=== PATIENT | male | born 1985 | race Caucasian/White ===

== ENCOUNTER 2019-04-02 13:40 | Inpatient (IN) | payer BC, OTHER ==
[2019-04-02 18:14] VITALS: BMI 31.5
--- NOTE | 2019-04-02 19:20 | HP ---
CIWA Score Nausea/Vomitin Muscle Tremors: 2 Anxiety: 2 Agitation: 3 Paroxysmal Sweats: 1-Minimal Palms Moist Orientation: 0-Oriented Tacttile Disturbances: 1-Very Mild Itch/Numbness Auditory Disturbances: 0-None Visual Disturbances: 0-None Headache: 2-Mild CIWA-Ar Total Score: 13 - Admission Criteria OASAS Guidelines: Admission for Medically Managed Detox: Requires at least one of the followin. CIWA greater than 12 2. Seizures within the past 24 hours 3. Delirium tremens within the past 24 hours 4. Hallucinations within the past 24 hours 5. Acute intervention needed for co occurring medical disorder 6. Acute intervention needed for co occurring psychiatric disorder 7. Severe withdrawal that cannot be handled at a lower level of care (continued vomiting, continued diarrhea, abnormal vital signs) requiring intravenous medication and/or fluids 8. Admission ROS S - HPI Chief Complaint: i need help to stop drinking alcohol Allergies/Adverse Reactions: Allergies Allergy/AdvReac Type Severity Reaction Status Date / Time No Known Allergies Allergy Verified 04/02/19 18:08 History of Present Illness: this 34 years old male with alcohol dependence,seeking help ,detox,withdrawal symptom, never been in detox before, has been drinking heavy vodka 1 litre/day,started at age of 15,last drink today denied seizure syncope denied smoking plan to go to work,out patient program after detox Exam Limitations: No Limitations - Ebola screening Have you traveled outside of the country in the last 21 days: No (N) Have you had contact with anyone from an Ebola affected area: No Do you have a fever: No - Review of Systems Constitutional: Loss of Appetite, Malaise, Night Sweats, Changes in sleep EENT: reports: Nose Congestion Respiratory: reports: No Symptoms reported Cardiac: reports: No Symptoms Reported GI: reports: Nausea, Abdominal cramping : reports: No Symptoms Reported Musculoskeletal: reports: Back Pain, Muscle Pain Integumentary: reports: Dryness Neuro: reports: Headache, Tremors Endocrine: reports: No Symptoms Reported Hematology: reports: No Symptoms Reported Psychiatric: reports: No Sypmtoms Reported, Judgement Intact, Mood/Affect Appropiate, Orientated x3 Other Systems: Reviewed and Negative Patient History - Patient Medical History Hx Anemia: No Hx Asthma: No Hx Chronic Obstructive Pulmonary Disease (COPD): No Hx Cancer: No Hx Cardiac Disorders: No Hx Congestive Heart Failure: No Hx Hypertension: No Hx Hypercholesterolemia: No Hx Pacemaker: No HX Cerebrovascular Accident: No Hx Seizures: No Hx Dementia: No Hx Diabetes: No Hx Gastrointestinal Disorders: No Hx Liver Disease: No Hx Genitourinary Disorders: No Hx Sexually Transmitted Disorders: No Hx Renal Disease (ESRD): No Hx Thyroid Disease: No Hx Human Immunodeficiency Virus (HIV): No (last 09/20 negative) Hx Hepatitis C: No Hx Depression: No Hx Suicide Attempt: No Hx Bipolar Disorder: No Hx Schizophrenia: No Other Medical History: no sucidal,no homicidal - Patient Surgical History Past Surgical History: No - PPD History Previous Implant?: Yes Documented Results: Negative w/o proof Implanted On Prior [facility] Admission?: No PPD to be Administered?: No - Smoking Cessation Smoking history: Never smoked Have you smoked in the past 12 months: No Hx Chewing Tobacco Use: No - Substance & Tx. History Hx Alcohol Use: Yes Hx Substance Use: No Substance Use Type: Alcohol Hx Substance Use Treatment: No - Substances abused Alcohol Substance route: Oral Frequency: Daily Amount used: 1 LITER OF VODKA Age of first use: 20 Date of last use: 04/02/19 Admission Physical Exam S - Vital Signs Vital Signs: Vital Signs - 24 hr 04/02/19 18:08 Temperature 96.7 F L Pulse Rate 85 Respiratory 18 Rate Blood Pressure 127/70 - Physical General Appearance: Yes: Moderate Distress, Tremorous, Irritable, Sweating, Anxious HEENTM: Yes: Normal ENT Inspection, [place], Pharynx Normal Respiratory: Yes: Lungs Clear, Normal Breath Sounds, No Respiratory Distress Neck: Yes: Within Normal Limits, Supple, Trachea in good position Breast: Yes: Within Normal Limits Cardiology: Yes: Within Normal Limits, Regular Rhythm, Regular Rate, S1, S2 Abdominal: Yes: Within Normal Limits, Normal Bowel Sounds, Non Tender, Flat, Soft Genitourinary: Yes: Within Normal Limits Back: Yes: Muscle Spasm Musculoskeletal: Yes: full range of Motion, Back pain, Muscle Pain Extremities: Yes: Tremors Neurological: Yes: supervisor screen printing II-XII NML intact, Fully Oriented, Alert, Motor Strength 5/5 Integumentary: Yes: Dry, Other (tattoos) Lymphatic: Yes: Within Normal Limits - Diagnostic (1) Alcohol dependence with uncomplicated withdrawal Current Visit: Yes Status: Acute (2) Syncope Current Visit: Yes Status: Acute Cleared for Admission S - Detox or Rehab [facility] Level of Care: Medically Managed Detox Regimen/Protocol: Librium Breathalyzer - Breathalyzer Breathalyzer: 0 Urine Drug Screen - Test Device Lot number: [id number] Expiration date: 12/01/20 - Control Is test valid?: Yes - Results Drug screen NEGATIVE: No Urine drug screen results: THC-Marijuana, ANTOINE-Cocaine Inpatient Rehab Admission - Rehab Decision to Admit Inpatient rehab admission?: No
[2019-04-02] MEDS ORDERED: ACETAMINOPHEN 325 MG TABLET (FP) PO PRN ×2 (19:32)
[2019-04-02] MEDS ORDERED: BISMUTH SUBSALICYLATE 524 MG/30 ML UD PO PRN (19:32)
[2019-04-02] MEDS ORDERED: MENTHOL/PHENOL 1 EACH UD MM PRN (19:32)
[2019-04-02] MEDS ORDERED: MAG HYDROX/AL HYDROX/SIMETH 30 ML UNIT-DOSE CUP PO PRN (19:32)
[2019-04-02] MEDS ORDERED: MAGNESIUM HYDROX 2400MG/30ML ORAL SUSPENSION 30 ML CUP PO PRN (19:32)
[2019-04-02] MEDS ORDERED: MAGNESIUM CITRATE 300 ML BOTTLE PO PRN (19:32)
[2019-04-02] MEDS ORDERED: METHOCARBAMOL 500 MG TABLET PO PRN (19:32)
[2019-04-02] MEDS ORDERED: chlordiazePOXIDE HCL 25 MG CAPSULE PO PRN (19:32)
[2019-04-02] MEDS ORDERED: IBUPROFEN 400 MG TABLET (FP) PO PRN (19:32)
[2019-04-02] MEDS: THIAMINE HCL 100 MG TABLET (FP) PO SCH (22:29)
[2019-04-02] MEDS: chlordiazePOXIDE HCL 25 MG CAPSULE PO SCH (22:29)
[2019-04-03] MEDS: chlordiazePOXIDE HCL 25 MG CAPSULE PO SCH ×4 (05:41→22:17)
--- NOTE | 2019-04-03 09:46 | PN ---
S CIWA - CIWA Score Nausea/Vomitin-Mild Nausea/No Vomiting Muscle Tremors: 3 Anxiety: 4-Mod. Anxious/Guarded Agitation: 2 Paroxysmal Sweats: 2 Orientation: 0-Oriented Tacttile Disturbances: 0-None Auditory Disturbances: 0-None Visual Disturbances: 0-None Headache: 0-None Present CIWA-Ar Total Score: 12 S Progress Note (SOAP) Subjective: doing well with librium detox regimen sitting on the edge of the bed eating breakfast demands meat for breakfast gta referral Objective: 04/03/19 09:45 Vital Signs Temperature 98.1 F 04/03/19 09:07 Pulse Rate 64 04/03/19 09:07 Respiratory Rate 18 04/03/19 09:07 Blood Pressure 129/69 04/03/19 09:07 O2 Sat by Pulse Oximetry (%) lab pending Assessment: 04/03/19 09:46 alcohol withdrawal sx Plan: continue librium detox regimen
[2019-04-03] MEDS: PRENATAL VITAMINS W/ FOLIC ACID TABLET (FP) PO SCH (10:30)
[2019-04-03 11:41] LABS: HEMATOCRIT 40.6 % (35.4-49); HEMOGLOBIN 13.5 GM/dL (11.7-16.9); MCH 29.3 pg (25.7-33.7); MCHC 33.3 g/dl (32.0-35.9); MEAN CELL VOLUME 88.1 fl (80-96); MEAN PLT VOLUME 9.3 fl (7.5-11.1); PLATELET COUNT 249 K/MM3 (134-434); RBC 4.61 M/mm3 (4.00-5.60); RDW 15.2 % (11.9-15.9); WHITE BLOOD COUNT 4.7 K/mm3 (4.0-10.0)
[2019-04-03 12:28] LABS: BILIRUBIN,TOTAL 0.3 mg/dL (0.2-1); BLOOD UREA NITROGEN 17.7 mg/dL (7-18); CALCIUM 8.6 mg/dL (8.5-10.1); CREATININE 1.2 mg/dL (0.55-1.3); POTASSIUM 3.9 mmol/L (3.5-5.1); TOT PROT 5.9 g/dl (6.4-8.2)
--- NOTE | 2019-04-03 13:25 | EKG ---
Test Reason : Blood Pressure : / mmHG Vent. Rate : 083 BPM Atrial Rate : 083 BPM P-R Int : 172 ms QRS Dur : 100 ms QT Int : 368 ms P-R-T Axes : 073 -44 044 degrees QTc Int : 432 ms NORMAL SINUS RHYTHM LEFT AXIS DEVIATION SEPTAL INFARCT , AGE UNDETERMINED ABNORMAL ECG NO PREVIOUS ECGS AVAILABLE Confirmed by KRISTIN FELIPE MD ([id number]) on 04/03/2019 1:25:08 PM Referred By: Confirmed By:KRISTIN FELIPE MD
[2019-04-03] MEDS: THIAMINE HCL 100 MG TABLET (FP) PO SCH (22:17)
[2019-04-03] MEDS: MELATONIN 5 MG TABLETS PO PRN (22:17)
[2019-04-04] MEDS: chlordiazePOXIDE HCL 25 MG CAPSULE PO SCH ×4 (05:54→22:09)
[2019-04-04] MEDS: PRENATAL VITAMINS W/ FOLIC ACID TABLET (FP) PO SCH (10:26)
--- NOTE | 2019-04-04 13:17 | PN ---
S CIWA - CIWA Score Nausea/Vomitin-Mild Nausea/No Vomiting Muscle Tremors: 2 Anxiety: 2 Agitation: 2 Paroxysmal Sweats: No Perspiration Orientation: 0-Oriented Tacttile Disturbances: 1-Very Mild Itch/Numbness Auditory Disturbances: 0-None Visual Disturbances: 0-None Headache: 2-Mild CIWA-Ar Total Score: 10 S Progress Note (SOAP) Subjective: alert,irritable,anxious,interrupted sleep,tremor Objective: 04/04/19 13:16 Vital Signs Temperature 98.3 F 04/04/19 13:04 Pulse Rate 82 04/04/19 13:04 Respiratory Rate 18 04/04/19 13:04 Blood Pressure 121/67 04/04/19 13:04 O2 Sat by Pulse Oximetry (%) Laboratory Last Values WBC 4.7 K/mm3 (4.0-10.0) 04/03/19 08:50 RBC 4.61 M/mm3 (4.00-5.60) 04/03/19 08:50 Hgb 13.5 GM/dL (11.7-16.9) 04/03/19 08:50 Hct 40.6 % (35.4-49) 04/03/19 08:50 MCV 88.1 fl (80-96) 04/03/19 08:50 MCH 29.3 pg (25.7-33.7) 04/03/19 08:50 MCHC 33.3 g/dl (32.0-35.9) 04/03/19 08:50 RDW 15.2 % (11.9-15.9) 04/03/19 08:50 Plt Count 249 K/MM3 (134-434) 04/03/19 08:50 MPV 9.3 fl (7.5-11.1) 04/03/19 08:50 Sodium 142 mmol/L (136-145) 04/03/19 08:50 Potassium 3.9 mmol/L (3.5-5.1) 04/03/19 08:50 Chloride 104 mmol/L (98-107) 04/03/19 08:50 Carbon Dioxide 31 mmol/L (21-32) 04/03/19 08:50 Anion Gap 7 MMOL/L (8-16) L 04/03/19 08:50 BUN 17.7 mg/dL (7-18) 04/03/19 08:50 Creatinine 1.2 mg/dL (0.55-1.3) 04/03/19 08:50 Est GFR (CKD-EPI)AfAm 92.83 04/03/19 08:50 Est GFR (CKD-EPI)NonAf 80.09 04/03/19 08:50 Random Glucose 83 mg/dL (74-106) 04/03/19 08:50 Calcium 8.6 mg/dL (8.5-10.1) 04/03/19 08:50 Total Bilirubin 0.3 mg/dL (0.2-1) 04/03/19 08:50 AST 29 U/L (15-37) 04/03/19 08:50 ALT 29 U/L (13-61) 04/03/19 08:50 Alkaline Phosphatase 68 U/L (45-117) 04/03/19 08:50 Total Protein 5.9 g/dl (6.4-8.2) L 04/03/19 08:50 Albumin 3.0 g/dl (3.4-5.0) L 04/03/19 08:50 RPR Titer Nonreactive (NONREACTIVE) 04/03/19 08:50 Assessment: 04/04/19 13:16 withdrawal symptom Plan: continue detox librium regimen
[2019-04-04] MEDS: THIAMINE HCL 100 MG TABLET (FP) PO SCH (22:09)
[2019-04-04] MEDS: MELATONIN 5 MG TABLETS PO PRN (22:10)
[2019-04-05] MEDS ORDERED: chlordiazePOXIDE HCL 10 MG CAPSULE PO PRN
[2019-04-05] MEDS: chlordiazePOXIDE HCL 10 MG CAPSULE PO SCH ×4 (05:43→22:10)
[2019-04-05] MEDS: PRENATAL VITAMINS W/ FOLIC ACID TABLET (FP) PO SCH (10:15)
--- NOTE | 2019-04-05 13:45 | PN ---
S CIWA - CIWA Score Nausea/Vomitin-Mild Nausea/No Vomiting Muscle Tremors: 2 Anxiety: 2 Agitation: 2 Paroxysmal Sweats: 1-Minimal Palms Moist Orientation: 0-Oriented Tacttile Disturbances: 0-None Auditory Disturbances: 0-None Visual Disturbances: 0-None Headache: 2-Mild CIWA-Ar Total Score: 10 S Progress Note (SOAP) Subjective: alert,irritable,anxious,interrupted sleep,pain in the body Objective: 04/05/19 13:43 Vital Signs Temperature 97.5 F L 04/05/19 13:01 Pulse Rate 74 04/05/19 13:01 Respiratory Rate 18 04/05/19 13:01 Blood Pressure 138/76 04/05/19 13:01 O2 Sat by Pulse Oximetry (%) 04/05/19 13:44 Laboratory Last Values WBC 4.7 K/mm3 (4.0-10.0) 04/03/19 08:50 RBC 4.61 M/mm3 (4.00-5.60) 04/03/19 08:50 Hgb 13.5 GM/dL (11.7-16.9) 04/03/19 08:50 Hct 40.6 % (35.4-49) 04/03/19 08:50 MCV 88.1 fl (80-96) 04/03/19 08:50 MCH 29.3 pg (25.7-33.7) 04/03/19 08:50 MCHC 33.3 g/dl (32.0-35.9) 04/03/19 08:50 RDW 15.2 % (11.9-15.9) 04/03/19 08:50 Plt Count 249 K/MM3 (134-434) 04/03/19 08:50 MPV 9.3 fl (7.5-11.1) 04/03/19 08:50 Sodium 142 mmol/L (136-145) 04/03/19 08:50 Potassium 3.9 mmol/L (3.5-5.1) 04/03/19 08:50 Chloride 104 mmol/L (98-107) 04/03/19 08:50 Carbon Dioxide 31 mmol/L (21-32) 04/03/19 08:50 Anion Gap 7 MMOL/L (8-16) L 04/03/19 08:50 BUN 17.7 mg/dL (7-18) 04/03/19 08:50 Creatinine 1.2 mg/dL (0.55-1.3) 04/03/19 08:50 Est GFR (CKD-EPI)AfAm 92.83 04/03/19 08:50 Est GFR (CKD-EPI)NonAf 80.09 04/03/19 08:50 Random Glucose 83 mg/dL (74-106) 04/03/19 08:50 Calcium 8.6 mg/dL (8.5-10.1) 04/03/19 08:50 Total Bilirubin 0.3 mg/dL (0.2-1) 04/03/19 08:50 AST 29 U/L (15-37) 04/03/19 08:50 ALT 29 U/L (13-61) 04/03/19 08:50 Alkaline Phosphatase 68 U/L (45-117) 04/03/19 08:50 Total Protein 5.9 g/dl (6.4-8.2) L 04/03/19 08:50 Albumin 3.0 g/dl (3.4-5.0) L 04/03/19 08:50 RPR Titer Nonreactive (NONREACTIVE) 04/03/19 08:50 TB (QFT) Incubation (.) 04/03/19 08:45 TB Test (QFT) Nil 0.04 IU/mL (.) 04/03/19 08:45 TB Test (QFT) Mitogen >10.00 IU/mL (.) 04/03/19 08:45 TB Test (QFT) Antigen 0.05 IU/mL (.) 04/03/19 08:45 TB Test (QFT) Negative (Negative) 04/03/19 08:45 TB Positive Criteria (.) 04/03/19 08:45 Assessment: 04/05/19 13:44 withdrawal symptom Plan: continue detox librium regimen
[2019-04-05 17:14] LABS: PH,URINE 7.5 (5.0-8.0); URINE APPEARANCE CLEAR; URINE BILIRUBIN NEGATIVE (NEGATIVE); URINE COLOR YELLOW; URINE GLUCOSE (UA) NEGATIVE (NEGATIVE); URINE KETONE NEGATIVE (NEGATIVE); URINE LEUK ESTERASE NEGATIVE (NEGATIVE); URINE NITRITE NEGATIVE (NEGATIVE); URINE PROTEIN NEGATIVE (NEGATIVE); URINE UROBILINOGEN 0.2 mg/dL (0.2-1.0)
[2019-04-05] MEDS: hydrOXYzine PAMOATE 25 MG CAPSULE (FP) PO PRN (17:21)
[2019-04-05] MEDS: THIAMINE HCL 100 MG TABLET (FP) PO SCH (22:10)
[2019-04-05] MEDS: MELATONIN 5 MG TABLETS PO PRN (22:10)
[2019-04-06] MEDS: chlordiazePOXIDE HCL 10 MG CAPSULE PO SCH ×2 (05:21→18:52)
[2019-04-06] MEDS: PRENATAL VITAMINS W/ FOLIC ACID TABLET (FP) PO SCH (10:11)
--- NOTE | 2019-04-06 15:14 | PN ---
S CIWA - CIWA Score Nausea/Vomitin-No Nausea/No Vomiting Muscle Tremors: None Anxiety: 0-No Anxiety, at Ease Agitation: 2 Paroxysmal Sweats: No Perspiration Orientation: 0-Oriented Tacttile Disturbances: 0-None Auditory Disturbances: 0-None Visual Disturbances: 0-None Headache: 0-None Present CIWA-Ar Total Score: 2 [facility] Progress Note (SOAP) Subjective: Patient denies current Withdrawal / Detox symptoms and reports that he feels well overall at this time. Objective: PATIENT A & O X 3, OBSERVED AMBULATING ON DETOX UNIT UNASSISTED. IN NO ACUTE DISTRESS. 04/06/19 15:13 Vital Signs Temperature 97.3 F L 04/06/19 13:09 Pulse Rate 66 04/06/19 13:09 Respiratory Rate 18 04/06/19 13:09 Blood Pressure 119/71 04/06/19 13:09 O2 Sat by Pulse Oximetry (%) Laboratory Tests 04/03/19 04/03/19 04/03/19 08:45 08:50 08:50 WBC 4.7 RBC 4.61 Hgb 13.5 Hct 40.6 MCV 88.1 MCH 29.3 MCHC 33.3 RDW 15.2 Plt Count 249 MPV 9.3 Sodium 142 Potassium 3.9 Chloride 104 Carbon Dioxide 31 Anion Gap 7 L BUN 17.7 Creatinine 1.2 Est GFR (CKD-EPI)AfAm 92.83 Est GFR (CKD-EPI)NonAf 80.09 Random Glucose 83 Calcium 8.6 Total Bilirubin 0.3 AST 29 ALT 29 Alkaline Phosphatase 68 Total Protein 5.9 L Albumin 3.0 L Urine Color Urine Appearance Urine pH Ur Specific [place] Urine Protein Urine Glucose (UA) Urine Ketones Urine Blood Urine Nitrite Urine Bilirubin Urine Urobilinogen Ur Leukocyte Esterase RPR Titer TB (QFT) Incubation TB Test (QFT) Nil 0.04 TB Test (QFT) Mitogen >10.00 TB Test (QFT) Antigen 0.05 TB Test (QFT) Negative TB Positive Criteria 04/03/19 04/05/19 08:50 15:45 WBC RBC Hgb Hct MCV MCH MCHC RDW Plt Count MPV Sodium Potassium Chloride Carbon Dioxide Anion Gap BUN Creatinine Est GFR (CKD-EPI)AfAm Est GFR (CKD-EPI)NonAf Random Glucose Calcium Total Bilirubin AST ALT Alkaline Phosphatase Total Protein Albumin Urine Color Yellow Urine Appearance Clear Urine pH 7.5 Ur Specific [place] 1.012 Urine Protein Negative Urine Glucose (UA) Negative Urine Ketones Negative Urine Blood Negative Urine Nitrite Negative Urine Bilirubin Negative Urine Urobilinogen 0.2 Ur Leukocyte Esterase Negative RPR Titer Nonreactive TB (QFT) Incubation TB Test (QFT) Nil TB Test (QFT) Mitogen TB Test (QFT) Antigen TB Test (QFT) TB Positive Criteria LABS NOTED. Assessment: 04/06/19 15:14 WITHDRAWAL SYMPTOMS. Plan: CONTINUE DETOX. PATIENT SCHEDULED FOR D/C FROM DETOX UNIT TOMORROW.
[2019-04-06] MEDS: MELATONIN 5 MG TABLETS PO PRN (22:21)
[2019-04-06] MEDS: THIAMINE HCL 100 MG TABLET (FP) PO SCH (22:21)
[2019-04-06] MEDS: hydrOXYzine PAMOATE 25 MG CAPSULE (FP) PO PRN (22:22)
[2019-04-07] MEDS ORDERED: chlordiazePOXIDE HCL 10 MG CAPSULE PO ONE (05:00)
[2019-04-07 06:28] VITALS: BP 112/76; PULSE 68; TEMP 97.1
--- NOTE | 2019-04-07 16:46 | DS ---
[facility] Detox Discharge Summary Admission Date: 04/02/19 Discharge Date: 04/07/19 - History Present History: Alcohol Dependence Additional Comments: PATIENT RETURNING HOME AND TO WORK, WILL ATTEND LOCAL 12-STEP / AA OUTPATIENT SUPPORT GROUPS PROGRAM FOR AFTERCARE. PATIENT WAS DISCHARGED FROM DETOX UNIT IN STABLE MEDICAL CONDITION. Pertinent Past History: History Of Syncope. - Physical Exam Results Vital Signs: Vital Signs Temperature 97.1 F L 04/07/19 06:00 Pulse Rate 68 04/07/19 06:00 Respiratory Rate 20 04/07/19 06:00 Blood Pressure 112/76 04/07/19 06:00 O2 Sat by Pulse Oximetry (%) Pertinent Admission Physical Exam Findings: WITHDRAWAL SYMPTOMS. Laboratory Tests 04/03/19 04/03/19 04/03/19 08:45 08:50 08:50 WBC 4.7 RBC 4.61 Hgb 13.5 Hct 40.6 MCV 88.1 MCH 29.3 MCHC 33.3 RDW 15.2 Plt Count 249 MPV 9.3 Sodium 142 Potassium 3.9 Chloride 104 Carbon Dioxide 31 Anion Gap 7 L BUN 17.7 Creatinine 1.2 Est GFR (CKD-EPI)AfAm 92.83 Est GFR (CKD-EPI)NonAf 80.09 Random Glucose 83 Calcium 8.6 Total Bilirubin 0.3 AST 29 ALT 29 Alkaline Phosphatase 68 Total Protein 5.9 L Albumin 3.0 L Urine Color Urine Appearance Urine pH Ur Specific [place] Urine Protein Urine Glucose (UA) Urine Ketones Urine Blood Urine Nitrite Urine Bilirubin Urine Urobilinogen Ur Leukocyte Esterase RPR Titer TB (QFT) Incubation TB Test (QFT) Nil 0.04 TB Test (QFT) Mitogen >10.00 TB Test (QFT) Antigen 0.05 TB Test (QFT) Negative TB Positive Criteria 04/03/19 04/05/19 08:50 15:45 WBC RBC Hgb Hct MCV MCH MCHC RDW Plt Count MPV Sodium Potassium Chloride Carbon Dioxide Anion Gap BUN Creatinine Est GFR (CKD-EPI)AfAm Est GFR (CKD-EPI)NonAf Random Glucose Calcium Total Bilirubin AST ALT Alkaline Phosphatase Total Protein Albumin Urine Color Yellow Urine Appearance Clear Urine pH 7.5 Ur Specific [place] 1.012 Urine Protein Negative Urine Glucose (UA) Negative Urine Ketones Negative Urine Blood Negative Urine Nitrite Negative Urine Bilirubin Negative Urine Urobilinogen 0.2 Ur Leukocyte Esterase Negative RPR Titer Nonreactive TB (QFT) Incubation TB Test (QFT) Nil TB Test (QFT) Mitogen TB Test (QFT) Antigen TB Test (QFT) TB Positive Criteria LABS NOTED. - Treatment Hospital Course: Detox Protocol Followed, Detoxed Safely, Responded well, Discharged Condition Good Patient has Accepted a Rehab Referral to: PT. RETURNING HOME, WILL ATTEND LOCAL 12-STEP / AA OUTPATIENT SUPPORT GROUP - Medication Discharge Medications: Ambulatory Orders NK [No Known Home Medication] 01/24/16 - Diagnosis (1) Alcohol dependence with uncomplicated withdrawal Status: Acute (2) Syncope Status: Acute Qualifiers: Syncope type: unspecified Qualified Code(s): R55 - Syncope and collapse - AMA Did Patient Leave Against Medical Advice: No [facility] CIWA - CIWA Score Nausea/Vomitin-No Nausea/No Vomiting Muscle Tremors: None Anxiety: 0-No Anxiety, at Ease Agitation: 2 Paroxysmal Sweats: No Perspiration Orientation: 0-Oriented Tacttile Disturbances: 0-None Auditory Disturbances: 0-None Visual Disturbances: 0-None Headache: 0-None Present CIWA-Ar Total Score: 2
== END 2019-04-07 08:43 | disposition home or self-care (01) | DRG 897 ==
LOC: YASAS 13:40 → Y3N 19:34
PROVIDERS: ADMIT Surgery; ATTEND Surgery
PROC: HZ2ZZZZ Detoxification Services for Substance Abuse Treatment (ICD-10-PCS; principal; 2019-04-02)
DX: F10.230 Alcohol dependence with withdrawal, uncomplicated (principal); R55 Syncope and collapse
CPT/HCPCS: 36415; 80053; 81003; 85027; 86480; 86593; 93005; 93010

== ENCOUNTER 2020-01-18 19:13 | Inpatient (IN) | payer BC, OTHER ==
[2020-01-18 19:20] VITALS: BMI 29.5
--- NOTE | 2020-01-18 19:31 | HP ---
CIWA Score - Admission Criteria OASAS Guidelines: Admission for Medically Managed Detox: Requires at least one of the followin. CIWA greater than 12 2. Seizures within the past 24 hours 3. Delirium tremens within the past 24 hours 4. Hallucinations within the past 24 hours 5. Acute intervention needed for co occurring medical disorder 6. Acute intervention needed for co occurring psychiatric disorder 7. Severe withdrawal that cannot be handled at a lower level of care (continued vomiting, continued diarrhea, abnormal vital signs) requiring intravenous medication and/or fluids 8. Admission ROS S - [facility] Chief Complaint: Seeking admission to detox from alcohol. Allergies/Adverse Reactions: Allergies Allergy/AdvReac Type Severity Reaction Status Date / Time No Known Allergies Allergy Verified 01/18/20 19:23 History of Present Illness: 34 years old male with a long history of alcohol dependence (16 years ) is seeking admission to detox. This is his second admission to [facility], last admission was for the period 04/02/2019 - 04/07/2019. He reports use of 2 pints of vodka daily and insignificant period of sobriety. He denies medical history, psych. history and suicidal attempt / ideation at this time. 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 He is employed with [employer], lives with his father and denies legal issues. Exam Limitations: No Limitations - Ebola screening Have you traveled outside of the country in the last 21 days: No Have you had contact with anyone from an Ebola affected area: No Have you been sick,other than usual withdrawal symptoms: No Do you have a fever: No - Review of Systems Constitutional: Chills, Malaise EENT: reports: No Symptoms Reported Respiratory: reports: No Symptoms reported Cardiac: reports: No Symptoms Reported GI: reports: Constipated, Nausea, Poor Fluid Intake, Abdominal cramping : reports: No Symptoms Reported Musculoskeletal: reports: No Symptoms Reported Integumentary: reports: Dryness, Flushing Neuro: reports: Tremors Endocrine: reports: No Symptoms Reported, Unexplained Weight Loss Psychiatric: reports: Mood/Affect Appropiate, Orientated x3, Depressed Other Systems: Reviewed and Negative Patient History - Patient Medical History Hx Anemia: No Hx Asthma: No Hx Chronic Obstructive Pulmonary Disease (COPD): No Hx Cancer: No Hx Cardiac Disorders: No Hx Congestive Heart Failure: No Hx Hypertension: No Hx Hypercholesterolemia: No Hx Pacemaker: No HX Cerebrovascular Accident: No Hx Seizures: No Hx Dementia: No Hx Diabetes: No Hx Gastrointestinal Disorders: No Hx Liver Disease: No Hx Genitourinary Disorders: No Hx Sexually Transmitted Disorders: No Hx Renal Disease (ESRD): No Hx Thyroid Disease: No Hx Human Immunodeficiency Virus (HIV): No (Negative 09/2018) Hx Hepatitis C: No Hx Depression: No Hx Suicide Attempt: No (Denies suicidal ideation at this time) Hx Bipolar Disorder: No Hx Schizophrenia: No - Patient Surgical History Past Surgical History: No Hx Neurologic Surgery: No Hx Cataract Extraction: No Hx Cardiac Surgery: No Hx Lung Surgery: No Hx Breast Surgery: No Hx Breast Biopsy: No Hx Abdominal Surgery: No Hx Appendectomy: No Hx Cholecystectomy: No Hx Genitourinary Surgery: No Hx Section: No Hx Orthopedic Surgery: No Anesthesia Reaction: No - PPD History Previous Implant?: No Implanted On Prior [facility] Admission?: No PPD to be Administered?: Yes - Reproductive History Patient is a Female of Child Bearing Age (11 -55 yrs old): No (male) - Smoking Cessation Smoking history: Current every day smoker Have you smoked in the past 12 months: Yes Aproximately how many cigarettes per day: 10 Hx Chewing Tobacco Use: No Initiated information on smoking cessation: Yes 'Breaking Loose' booklet given: 01/18/20 - Substance & Tx. History Hx Alcohol Use: Yes Hx Substance Use: Yes Substance Use Type: Cocaine, Marijuana Hx Substance Use Treatment: Yes ([facility]) - Substances abused Alcohol Frequency: 3-6 times per week Amount used: 2 pints Vodka Age of first use: 18 Date of last use: 01/18/20 Admission Physical Exam [facility] - Vital Signs Vital Signs: Vital Signs - 24 hr 01/18/20 19:19 Temperature 97.8 F Pulse Rate 81 Respiratory 18 Rate Blood Pressure 126/74 - Physical General Appearance: Yes: Moderate Distress, Alcohol on Breath, Sweating HEENTM: Yes: Within Normal Limits Respiratory: Yes: Lungs Clear, Normal Breath Sounds, No Respiratory Distress Neck: Yes: Within Normal Limits Breast: Yes: Breast Exam Deferred Cardiology: Yes: Regular Rhythm, Regular Rate Abdominal: Yes: Normal Bowel Sounds, Soft Genitourinary: Yes: Within Normal Limits Back: Yes: Normal Inspection Musculoskeletal: Yes: Within Normal Limits Extremities: Yes: Tremors Neurological: Yes: Within Normal Limits Integumentary: Yes: Warm Lymphatic: Yes: Within Normal Limits - Diagnostic (1) Nicotine dependence Current Visit: Yes Status: Chronic Qualifiers: Nicotine product type: cigarettes Substance use status: uncomplicated Qualified Code(s): F17.210 - Nicotine dependence, cigarettes, uncomplicated (2) Cocaine dependence Current Visit: Yes Status: Chronic (3) Marijuana dependence Current Visit: Yes Status: Chronic (4) Alcohol dependence with uncomplicated withdrawal Current Visit: Yes Status: Acute Cleared for Admission [facility] - Detox or Rehab [facility] Level of Care: Medically Managed Detox Regimen/Protocol: Librium Claeared for Rehab Admission: No Breathalyzer - Breathalyzer Breathalyzer: 0.137 Urine Drug Screen - Test Device Lot number: [id number] Expiration date: 03/04/21 - Control Is test valid?: Yes - Results Drug screen NEGATIVE: No Urine drug screen results: THC-Marijuana, ANTOINE-Cocaine Inpatient Rehab Admission - Rehab Decision to Admit Inpatient rehab admission?: No
[2020-01-18] MEDS ORDERED: chlordiazePOXIDE HCL 25 MG CAPSULE PO PRN (19:41)
[2020-01-18] MEDS ORDERED: NICOTINE POLACRILEX 2 MG GUM BUC PRN (19:41)
[2020-01-18] MEDS ORDERED: hydrOXYzine PAMOATE 25 MG CAPSULE (FP) PO PRN (19:41)
[2020-01-18] MEDS ORDERED: IBUPROFEN 400 MG TABLET (FP) PO PRN (19:41)
[2020-01-18] MEDS ORDERED: ACETAMINOPHEN 325 MG TABLET (FP) PO PRN ×2 (19:41)
[2020-01-18] MEDS ORDERED: MAG HYDROX/AL HYDROX/SIMETH 30 ML UNIT-DOSE CUP PO PRN (19:41)
[2020-01-18] MEDS ORDERED: BISMUTH SUBSALICYLATE 524 MG/30 ML UD PO PRN (19:41)
[2020-01-18] MEDS ORDERED: MAGNESIUM HYDROX 2400MG/30ML ORAL SUSPENSION 30 ML CUP PO PRN (19:41)
[2020-01-18] MEDS ORDERED: MAGNESIUM CITRATE 300 ML BOTTLE PO PRN (19:41)
[2020-01-18] MEDS ORDERED: METHOCARBAMOL 500 MG TABLET PO PRN (19:41)
[2020-01-18] MEDS ORDERED: ONDANSETRON *ODT* 4 MG TABLET SL ONE (20:00)
[2020-01-18] MEDS: THIAMINE HCL 100 MG TABLET (FP) PO SCH (22:08)
[2020-01-18] MEDS: chlordiazePOXIDE HCL 25 MG CAPSULE PO SCH (22:08)
[2020-01-18] MEDS: MELATONIN 5 MG TABLETS PO SCH (22:22)
[2020-01-19] MEDS: chlordiazePOXIDE HCL 25 MG CAPSULE PO SCH ×4 (06:01→22:14)
[2020-01-19 09:43] LABS: HEMATOCRIT 44.3 % (35.4-49); MCH 31.2 pg (25.7-33.7); MCHC 33.8 g/dl (32.0-35.9); PLATELET COUNT 298 K/MM3 (134-434); RBC 4.81 M/mm3 (4.00-5.60); RDW 13.4 % (11.9-15.9); WHITE BLOOD COUNT 5.2 K/mm3 (4.0-10.0)
[2020-01-19 10:03] LABS: POTASSIUM 3.6 mmol/L (3.5-5.1)
[2020-01-19 10:13] LABS: ALBUMIN 4.1 g/dl (3.4-5.0); BILIRUBIN,TOTAL 0.4 mg/dL (0.2-1); BLOOD UREA NITROGEN 10.2 mg/dL (7-18); CREATININE 0.9 mg/dL (0.55-1.3); TOT PROT 6.2 g/dl (6.4-8.2)
[2020-01-19] MEDS: PRENATAL VITAMINS W/ FOLIC ACID TABLET (FP) PO SCH (10:35)
[2020-01-19] MEDS: NICOTINE 14 MG/24 HOURS TOPICAL PATCH TD SCH (10:36)
--- NOTE | 2020-01-19 14:06 | PN ---
S CIWA - CIWA Score Nausea/Vomitin Muscle Tremors: 3 Anxiety: 2 Agitation: 2 Paroxysmal Sweats: No Perspiration Orientation: 0-Oriented Tacttile Disturbances: 1-Very Mild Itch/Numbness Auditory Disturbances: 0-None Visual Disturbances: 0-None Headache: 1-Very Mild CIWA-Ar Total Score: 11 S Progress Note (SOAP) Subjective: alert,irritable,anxious,interrupted sleep,tremor,nausea,pain in the body Objective: 01/19/20 14:04 Vital Signs Temperature 97.3 F L 01/19/20 08:52 Pulse Rate 79 01/19/20 08:52 Respiratory Rate 18 01/19/20 08:52 Blood Pressure 131/76 01/19/20 08:52 O2 Sat by Pulse Oximetry (%) 97 01/19/20 05:52 Laboratory Last Values WBC 5.2 K/mm3 (4.0-10.0) 01/19/20 07:20 RBC 4.81 M/mm3 (4.00-5.60) 01/19/20 07:20 Hgb 15.0 GM/dL (11.7-16.9) 01/19/20 07:20 Hct 44.3 % (35.4-49) 01/19/20 07:20 MCV 92.0 fl (80-96) 01/19/20 07:20 MCH 31.2 pg (25.7-33.7) 01/19/20 07:20 MCHC 33.8 g/dl (32.0-35.9) 01/19/20 07:20 RDW 13.4 % (11.9-15.9) D 01/19/20 07:20 Plt Count 298 K/MM3 (134-434) 01/19/20 07:20 MPV 10.0 fl (7.5-11.1) 01/19/20 07:20 Sodium 139 mmol/L (136-145) 01/19/20 07:20 Potassium 3.6 mmol/L (3.5-5.1) 01/19/20 07:20 Chloride 104 mmol/L (98-107) 01/19/20 07:20 Carbon Dioxide 33 mmol/L (21-32) H 01/19/20 07:20 Anion Gap 3 MMOL/L (8-16) L 01/19/20 07:20 BUN 10.2 mg/dL (7-18) 01/19/20 07:20 Creatinine 0.9 mg/dL (0.55-1.3) 01/19/20 07:20 Est GFR (CKD-EPI)AfAm 130.52 01/19/20 07:20 Est GFR (CKD-EPI)NonAf 112.62 01/19/20 07:20 Random Glucose 101 mg/dL (74-106) 01/19/20 07:20 Calcium 9.0 mg/dL (8.5-10.1) 01/19/20 07:20 Total Bilirubin 0.4 mg/dL (0.2-1) 01/19/20 07:20 AST 37 U/L (15-37) 01/19/20 07:20 ALT 43 U/L (13-61) 01/19/20 07:20 Alkaline Phosphatase 80 U/L (45-117) 01/19/20 07:20 Total Protein 6.2 g/dl (6.4-8.2) L 01/19/20 07:20 Albumin 4.1 g/dl (3.4-5.0) 01/19/20 07:20 Syphilis Serology Non-reactive (NONREACTIVE) 01/19/20 07:20 Assessment: 01/19/20 14:05 withdrawal symptom Plan: continue detox librium regimen
[2020-01-19] MEDS: MELATONIN 5 MG TABLETS PO SCH (22:14)
[2020-01-19] MEDS: THIAMINE HCL 100 MG TABLET (FP) PO SCH (22:14)
[2020-01-20] MEDS: chlordiazePOXIDE HCL 25 MG CAPSULE PO SCH ×4 (05:42→22:30)
[2020-01-20] MEDS: NICOTINE 14 MG/24 HOURS TOPICAL PATCH TD SCH (10:48)
[2020-01-20] MEDS: PRENATAL VITAMINS W/ FOLIC ACID TABLET (FP) PO SCH (10:48)
--- NOTE | 2020-01-20 14:56 | PN ---
[facility] CIWA - CIWA Score Nausea/Vomitin-No Nausea/No Vomiting Muscle Tremors: 2 Anxiety: 2 Agitation: 2 Paroxysmal Sweats: 2 Orientation: 0-Oriented Tacttile Disturbances: 0-None Auditory Disturbances: 0-None Visual Disturbances: 2-Mild Sensitivity Headache: 0-None Present CIWA-Ar Total Score: 10 S Progress Note (SOAP) Subjective: Complaints of tremors, anxiety, sweats and light sensitivity. Objective: 01/20/20 14:54 Vital Signs 01/20/20 01/20/20 08:33 12:32 Temperature 98.3 F 98.3 F Pulse Rate 80 69 Respiratory 16 16 Rate Blood Pressure 134/78 144/74 O2 Sat by Pulse 100 100 Oximetry (%) Laboratory Last Values WBC 5.2 K/mm3 (4.0-10.0) 01/19/20 07:20 RBC 4.81 M/mm3 (4.00-5.60) 01/19/20 07:20 Hgb 15.0 GM/dL (11.7-16.9) 01/19/20 07:20 Hct 44.3 % (35.4-49) 01/19/20 07:20 MCV 92.0 fl (80-96) 01/19/20 07:20 MCH 31.2 pg (25.7-33.7) 01/19/20 07:20 MCHC 33.8 g/dl (32.0-35.9) 01/19/20 07:20 RDW 13.4 % (11.9-15.9) D 01/19/20 07:20 Plt Count 298 K/MM3 (134-434) 01/19/20 07:20 MPV 10.0 fl (7.5-11.1) 01/19/20 07:20 Sodium 139 mmol/L (136-145) 01/19/20 07:20 Potassium 3.6 mmol/L (3.5-5.1) 01/19/20 07:20 Chloride 104 mmol/L (98-107) 01/19/20 07:20 Carbon Dioxide 33 mmol/L (21-32) H 01/19/20 07:20 Anion Gap 3 MMOL/L (8-16) L 01/19/20 07:20 BUN 10.2 mg/dL (7-18) 01/19/20 07:20 Creatinine 0.9 mg/dL (0.55-1.3) 01/19/20 07:20 Est GFR (CKD-EPI)AfAm 130.52 01/19/20 07:20 Est GFR (CKD-EPI)NonAf 112.62 01/19/20 07:20 Random Glucose 101 mg/dL (74-106) 01/19/20 07:20 Calcium 9.0 mg/dL (8.5-10.1) 01/19/20 07:20 Total Bilirubin 0.4 mg/dL (0.2-1) 01/19/20 07:20 AST 37 U/L (15-37) 01/19/20 07:20 ALT 43 U/L (13-61) 01/19/20 07:20 Alkaline Phosphatase 80 U/L (45-117) 01/19/20 07:20 Total Protein 6.2 g/dl (6.4-8.2) L 01/19/20 07:20 Albumin 4.1 g/dl (3.4-5.0) 01/19/20 07:20 Syphilis Serology Non-reactive (NONREACTIVE) 01/19/20 07:20 COVID-19 ([facility]) Not detected (Not Detected) 01/18/20 20:00 Labs noted. Assessment: 01/20/20 14:55 Alert and oriented x 3, in no acute respiratory distress. Full ROM, ambulating in the unit without assistance. Withdrawal symptoms. Plan: Continue detox protocol.
--- NOTE | 2020-01-20 15:09 | EKG ---
Test Reason : Blood Pressure : / mmHG Vent. Rate : 070 BPM Atrial Rate : 070 BPM P-R Int : 194 ms QRS Dur : 118 ms QT Int : 432 ms P-R-T Axes : 081 -21 026 degrees QTc Int : 466 ms NORMAL SINUS RHYTHM SEPTAL INFARCT (CITED ON OR BEFORE 02-APR-2019) ABNORMAL ECG WHEN COMPARED WITH ECG OF 02-APR-2019 20:03, QUESTIONABLE CHANGE IN INITIAL FORCES OF SEPTAL LEADS Confirmed by KARIN SANCHES MD ([id number]) on 01/20/2020 3:08:58 PM Referred By: Confirmed By:KARIN SANCHES MD
[2020-01-20] MEDS: THIAMINE HCL 100 MG TABLET (FP) PO SCH (22:30)
[2020-01-20] MEDS: MELATONIN 5 MG TABLETS PO SCH (22:30)
[2020-01-21] MEDS ORDERED: chlordiazePOXIDE HCL 10 MG CAPSULE PO PRN
[2020-01-21] MEDS: chlordiazePOXIDE HCL 10 MG CAPSULE PO SCH ×4 (06:08→22:24)
[2020-01-21] MEDS: NICOTINE 14 MG/24 HOURS TOPICAL PATCH TD SCH (10:09)
[2020-01-21] MEDS: PRENATAL VITAMINS W/ FOLIC ACID TABLET (FP) PO SCH (10:09)
--- NOTE | 2020-01-21 14:15 | PN ---
S CIWA - CIWA Score Nausea/Vomitin-Mild Nausea/No Vomiting Muscle Tremors: 2 Anxiety: 1-Mildly Anxious Agitation: 1-Slight > Activity Paroxysmal Sweats: 2 Orientation: 0-Oriented Tacttile Disturbances: 0-None Auditory Disturbances: 0-None Visual Disturbances: 0-None Headache: 0-None Present CIWA-Ar Total Score: 7 BHS Progress Note (SOAP) Subjective: Interrupted sleep Objective: 01/21/20 14:13 Last Vital Signs Temp Pulse Resp BP Pulse Ox 97.5 F L 72 18 98/65 99 01/21/20 13:08 01/21/20 13:08 01/21/20 13:08 01/21/20 13:08 01/21/20 13:08 Laboratory Tests 01/18/20 01/19/20 01/19/20 20:00 07:20 07:20 WBC 5.2 RBC 4.81 Hgb 15.0 Hct 44.3 MCV 92.0 MCH 31.2 MCHC 33.8 RDW 13.4 D Plt Count 298 MPV 10.0 Sodium Potassium Chloride Carbon Dioxide Anion Gap BUN Creatinine Est GFR (CKD-EPI)AfAm Est GFR (CKD-EPI)NonAf Random Glucose Calcium Total Bilirubin AST ALT Alkaline Phosphatase Total Protein Albumin Syphilis Serology Non-reactive COVID-19 ([facility]) Not detected 01/19/20 07:20 WBC RBC Hgb Hct MCV MCH MCHC RDW Plt Count MPV Sodium 139 Potassium 3.6 Chloride 104 Carbon Dioxide 33 H Anion Gap 3 L BUN 10.2 Creatinine 0.9 Est GFR (CKD-EPI)AfAm 130.52 Est GFR (CKD-EPI)NonAf 112.62 Random Glucose 101 Calcium 9.0 Total Bilirubin 0.4 AST 37 ALT 43 Alkaline Phosphatase 80 Total Protein 6.2 L Albumin 4.1 Syphilis Serology COVID-19 ([facility]) Labs reviewed Assessment: 01/21/20 14:14 Withdrawal sxs Plan: Continue detox Encouraged PO water intake
[2020-01-21] MEDS: THIAMINE HCL 100 MG TABLET (FP) PO SCH (22:24)
[2020-01-21] MEDS: MELATONIN 5 MG TABLETS PO SCH (22:24)
[2020-01-22] MEDS: chlordiazePOXIDE HCL 10 MG CAPSULE PO SCH ×2 (06:12→17:40)
[2020-01-22] MEDS: NICOTINE 14 MG/24 HOURS TOPICAL PATCH TD SCH (10:19)
[2020-01-22] MEDS: PRENATAL VITAMINS W/ FOLIC ACID TABLET (FP) PO SCH (10:19)
--- NOTE | 2020-01-22 14:13 | PN ---
[facility] CIWA - CIWA Score Nausea/Vomitin-Mild Nausea/No Vomiting Muscle Tremors: 1-None Visible, but [place] Anxiety: 1-Mildly Anxious Agitation: 1-Slight > Activity Paroxysmal Sweats: No Perspiration Orientation: 0-Oriented Tacttile Disturbances: 0-None Auditory Disturbances: 0-None Visual Disturbances: 0-None Headache: 1-Very Mild CIWA-Ar Total Score: 5 S Progress Note (SOAP) Subjective: alert,irritable,anxious,interrupted sleep,aching pain Objective: 01/22/20 14:12 Vital Signs Temperature 97.7 F 01/22/20 12:58 Pulse Rate 91 H 01/22/20 12:58 Respiratory Rate 18 01/22/20 12:58 Blood Pressure 136/82 01/22/20 12:58 O2 Sat by Pulse Oximetry (%) 100 01/22/20 12:58 Assessment: 01/22/20 14:13 withdrawal symptom Plan: continue detox librium regimen,discharge in am
[2020-01-22] MEDS: MENTHOL/PHENOL 1 EACH UD MM PRN (18:15)
[2020-01-22] MEDS: MELATONIN 5 MG TABLETS PO SCH (21:31)
[2020-01-22] MEDS: THIAMINE HCL 100 MG TABLET (FP) PO SCH (21:31)
[2020-01-23] MEDS ORDERED: chlordiazePOXIDE HCL 10 MG CAPSULE PO ONE (05:00)
[2020-01-23] MEDS: MENTHOL/PHENOL 1 EACH UD MM PRN (05:57)
[2020-01-23 06:25] VITALS: BP 117/68; PULSE 98; TEMP 97.7
--- NOTE | 2020-01-23 08:29 | DS ---
[facility] Detox Discharge Summary Admission Date: 01/18/20 Discharge Date: 01/23/20 - History Present History: Alcohol Dependence, Cannabis Dependence - Physical Exam Results Vital Signs: Vital Signs Temperature 97.7 F 01/23/20 05:51 Pulse Rate 98 H 01/23/20 05:51 Respiratory Rate 18 01/23/20 05:51 Blood Pressure 117/68 01/23/20 05:51 O2 Sat by Pulse Oximetry (%) 97 01/23/20 05:51 Pertinent Admission Physical Exam Findings: Vital Signs Temperature 97.7 F 01/23/20 05:51 Pulse Rate 98 H 01/23/20 05:51 Respiratory Rate 18 01/23/20 05:51 Blood Pressure 117/68 01/23/20 05:51 O2 Sat by Pulse Oximetry (%) 97 01/23/20 05:51 Laboratory Tests 01/18/20 01/19/20 01/19/20 20:00 07:20 07:20 WBC 5.2 RBC 4.81 Hgb 15.0 Hct 44.3 MCV 92.0 MCH 31.2 MCHC 33.8 RDW 13.4 D Plt Count 298 MPV 10.0 Sodium Potassium Chloride Carbon Dioxide Anion Gap BUN Creatinine Est GFR (CKD-EPI)AfAm Est GFR (CKD-EPI)NonAf Random Glucose Calcium Total Bilirubin AST ALT Alkaline Phosphatase Total Protein Albumin Syphilis Serology Non-reactive COVID-19 ([facility]) Not detected 01/19/20 07:20 WBC RBC Hgb Hct MCV MCH MCHC RDW Plt Count MPV Sodium 139 Potassium 3.6 Chloride 104 Carbon Dioxide 33 H Anion Gap 3 L BUN 10.2 Creatinine 0.9 Est GFR (CKD-EPI)AfAm 130.52 Est GFR (CKD-EPI)NonAf 112.62 Random Glucose 101 Calcium 9.0 Total Bilirubin 0.4 AST 37 ALT 43 Alkaline Phosphatase 80 Total Protein 6.2 L Albumin 4.1 Syphilis Serology COVID-19 ([facility]) aaox3 ambulating no acute distress lungs CTA - Treatment Hospital Course: Detox Protocol Followed, Detoxed Safely, Responded well, Discharged Condition Good, Rehab Referral Accepted - Medication Discharge Medications: Ambulatory Orders NK [No Known Home Medication] 01/24/16 - Diagnosis (1) Alcohol dependence with uncomplicated withdrawal Current Visit: Yes Status: Chronic (2) Cocaine dependence Current Visit: Yes Status: Chronic Qualifiers: Substance use status: uncomplicated Qualified Code(s): F14.20 - Cocaine dependence, uncomplicated (3) Marijuana dependence Current Visit: Yes Status: Chronic (4) Nicotine dependence Current Visit: Yes Status: Chronic Qualifiers: Nicotine product type: cigarettes Substance use status: uncomplicated Qualified Code(s): F17.210 - Nicotine dependence, cigarettes, uncomplicated (5) Shoulder injury Current Visit: No Status: Acute Qualifiers: Encounter type: initial encounter Laterality: right Qualified Code(s): S49.91XA - Unspecified injury of right shoulder and upper arm, initial encounter (6) Syncope Current Visit: No Status: Acute Qualifiers: Syncope type: unspecified Qualified Code(s): R55 - Syncope and collapse - AMA Did Patient Leave Against Medical Advice: No
== END 2020-01-23 08:33 | disposition home or self-care (01) | DRG 897 ==
LOC: YASAS 19:13 → Y6N 19:59
PROVIDERS: ADMIT Allergy & Immunology; ATTEND Allergy & Immunology
PROC: HZ2ZZZZ Detoxification Services for Substance Abuse Treatment (ICD-10-PCS; principal; 2020-01-18)
DX: F10.230 Alcohol dependence with withdrawal, uncomplicated (principal); F14.20 Cocaine dependence, uncomplicated; F12.20 Cannabis dependence, uncomplicated; F17.210 Nicotine dependence, cigarettes, uncomplicated
CPT/HCPCS: 36415; 80053; 85027; 86780; 93005; 93010; U0003

== ENCOUNTER 2022-06-23 23:35 | Inpatient (IN) | payer BC, OTHER ==
[2022-06-24 00:09] VITALS: BMI 28.7
[2022-06-24] MEDS ORDERED: IBUPROFEN 400 MG TABLET (FP) PO PRN (00:32)
[2022-06-24] MEDS ORDERED: BENZOCAINE/MENTHOL (CHLORASEPTIC ) LOZENGE MM PRN (00:32)
[2022-06-24] MEDS ORDERED: hydrOXYzine PAMOATE 25 MG CAPSULE (FP) PO PRN (00:32)
[2022-06-24] MEDS ORDERED: MAGNESIUM HYDROX 2400MG/30ML ORAL SUSPENSION 30 ML CUP PO PRN (00:32)
[2022-06-24] MEDS ORDERED: NICOTINE POLACRILEX 2 MG GUM BUC PRN (00:32)
[2022-06-24] MEDS ORDERED: DICYCLOMINE HCL 10 MG CAPSULE PO PRN (00:32)
[2022-06-24] MEDS ORDERED: IBUPROFEN 600 MG TABLET (FP) PO PRN (00:32)
[2022-06-24] MEDS ORDERED: NALOXONE HCL (KLOXXADO) 8 MG SPRAY NS PRN (00:32)
[2022-06-24] MEDS ORDERED: MAG HYDROX/AL HYDROX/SIMETH 30 ML UNIT-DOSE CUP PO PRN (00:32)
[2022-06-24] MEDS ORDERED: POLYETHYLENE GLYCOL (HEALTHYLAX) 3350 17 GM PACKET PO PRN (00:32)
[2022-06-24] MEDS ORDERED: BISMUTH SUBSALICYLATE 524 MG/30 ML PO PRN (00:32)
[2022-06-24] MEDS ORDERED: LOPERAMIDE HCL 2 MG CAPSULE PO PRN (00:32)
[2022-06-24] MEDS ORDERED: ACETAMINOPHEN 325 MG TABLET (FP) PO PRN ×2 (00:32)
[2022-06-24] MEDS ORDERED: ONDANSETRON *ODT* 4 MG TABLET SL PRN (00:32)
[2022-06-24] MEDS ORDERED: chlordiazePOXIDE HCL 25 MG CAPSULE PO PRN (09:24)
[2022-06-24] MEDS: NICOTINE 21 MG/24 HOURS TOPICAL PATCH TD SCH (10:37)
[2022-06-24] MEDS: PRENATAL VITAMINS W/ FOLIC ACID TABLET (FP) PO SCH (10:37)
[2022-06-24] MEDS: chlordiazePOXIDE HCL 25 MG CAPSULE PO SCH ×3 (10:38→22:20)
[2022-06-24] MEDS: THIAMINE HCL 100 MG TABLET (FP) PO SCH (22:20)
[2022-06-24] MEDS: MELATONIN 5 MG TABLETS PO SCH (22:20)
[2022-06-25] MEDS: chlordiazePOXIDE HCL 25 MG CAPSULE PO SCH ×4 (05:55→22:49)
[2022-06-25] MEDS: PRENATAL VITAMINS W/ FOLIC ACID TABLET (FP) PO SCH (10:54)
[2022-06-25] MEDS: NICOTINE 21 MG/24 HOURS TOPICAL PATCH TD SCH (10:57)
[2022-06-25 11:27] LABS: HEMATOCRIT 43.8 % (35.4-49); HEMOGLOBIN 14.9 GM/dL (11.7-16.9); MCH 31.4 pg (25.7-33.7); MCHC 33.9 g/dl (32.0-35.9); MEAN CELL VOLUME 92.7 fl (80-96); PLATELET COUNT 256 10^3/uL (134-434); RBC 4.73 M/mm3 (4.00-5.60); RDW 12.7 % (11.9-15.9); WHITE BLOOD COUNT 5.7 K/mm3 (4.0-10.0)
[2022-06-25 11:43] LABS: CALCIUM 9.4 mg/dL (8.5-10.1)
[2022-06-25 11:44] LABS: ALBUMIN 3.2 g/dl (3.4-5.0); BLOOD UREA NITROGEN 11.3 mg/dL (7-18)
[2022-06-25 11:47] LABS: BILIRUBIN,TOTAL 0.6 mg/dL (0.2-1); CREATININE 0.8 mg/dL (0.55-1.3)
[2022-06-25 11:48] LABS: TOT PROT 6.1 g/dl (6.4-8.2)
[2022-06-25] MEDS: MELATONIN 5 MG TABLETS PO SCH (22:48)
[2022-06-25] MEDS: THIAMINE HCL 100 MG TABLET (FP) PO SCH (22:48)
[2022-06-26] MEDS: chlordiazePOXIDE HCL 25 MG CAPSULE PO SCH ×4 (05:27→22:19)
[2022-06-26] MEDS: NICOTINE 21 MG/24 HOURS TOPICAL PATCH TD SCH (10:46)
[2022-06-26] MEDS: PRENATAL VITAMINS W/ FOLIC ACID TABLET (FP) PO SCH (10:48)
[2022-06-26] MEDS: THIAMINE HCL 100 MG TABLET (FP) PO SCH (22:19)
[2022-06-26] MEDS: MELATONIN 5 MG TABLETS PO SCH (22:19)
[2022-06-27] MEDS ORDERED: chlordiazePOXIDE HCL 10 MG CAPSULE PO PRN
[2022-06-27] MEDS: chlordiazePOXIDE HCL 10 MG CAPSULE PO SCH ×2 (06:13→10:44)
[2022-06-27 06:29] VITALS: RESP 16
[2022-06-27 09:23] VITALS: BP 115/71; PULSE 85; TEMP 96.9
[2022-06-27] MEDS: NICOTINE 21 MG/24 HOURS TOPICAL PATCH TD SCH (10:44)
[2022-06-27] MEDS: PRENATAL VITAMINS W/ FOLIC ACID TABLET (FP) PO SCH (10:44)
[2022-06-28] MEDS ORDERED: chlordiazePOXIDE HCL 10 MG CAPSULE PO SCH (05:00)
[2022-06-29] MEDS ORDERED: chlordiazePOXIDE HCL 10 MG CAPSULE PO ONE (05:00)
== END 2022-06-27 10:20 | disposition home or self-care (01) | DRG 897 ==
LOC: YASAS 23:35 → Y6N 06-24 01:17
PROVIDERS: ADMIT Allergy & Immunology; ATTEND Surgery
PROC: HZ2ZZZZ Detoxification Services for Substance Abuse Treatment (ICD-10-PCS; principal; 2022-06-24)
DX: F10.230 Alcohol dependence with withdrawal, uncomplicated (principal); F14.20 Cocaine dependence, uncomplicated; F17.210 Nicotine dependence, cigarettes, uncomplicated; F19.24 Other psychoactive substance dependence with psychoactive substance-induced mood disorder; Z28.311 Partially vaccinated for COVID-19
CPT/HCPCS: 36415; 80053; 85027; 86780; 93005; 93010; C9803-CS; U0003; U0005

== ENCOUNTER 2022-09-07 07:10 | Emergency (ER) | payer BC, OTHER ==
[2022-09-07 08:00] VITALS: BP 109/70; PULSE 92; RESP 20; BMI 28.7
== END 2022-09-07 09:17 | disposition home or self-care (01) ==
LOC: JER 07:10
DX: M79.672 Pain in left foot (principal)
CPT/HCPCS: 73610-TC-LT-FY; 73630-TC-LT; 99283-25

== ENCOUNTER 2023-09-29 07:08 | Emergency (ER) | payer OTHER ==
[2023-09-29 07:14] VITALS: BMI 31.5
[2023-09-29] MEDS ORDERED: IBUPROFEN 400 MG TABLET (FP) PO ONE (07:48)
[2023-09-29] MEDS ORDERED: ACETAMINOPHEN 500 MG TABLET (FP) ONE (07:48)
[2023-09-29] MEDS: IBUPROFEN 600 MG TABLET (FP) PO ONE (08:01)
[2023-09-29] MEDS: ACETAMINOPHEN 500 MG TABLET (FP) PO ONE (08:07)
[2023-09-29 09:29] VITALS: BP 124/65; PULSE 74; RESP 20; TEMP 97.6
== END 2023-09-29 09:35 | disposition home or self-care (01) ==
LOC: JER 07:08
DX: M54.6 Pain in thoracic spine (principal); M25.512 Pain in left shoulder; W10.1XXA Fall (on)(from) sidewalk curb, initial encounter; X50.1XXA Overexertion from prolonged static or awkward postures, initial encounter
CPT/HCPCS: 72070-TC-FY; 72128-TC; 73030-TC-LT-FY; 99284-25

== ENCOUNTER 2024-02-09 08:49 | Emergency (ER) | payer OTHER ==
[2024-02-09 09:00] VITALS: BP 136/87; PULSE 93; RESP 16; TEMP 97.4; BMI 30.1
[2024-02-09] MEDS ORDERED: TETRACAINE 0.5% OPHTH SOLN 2 ML BOTTLE ONE (09:42)
[2024-02-09] MEDS ORDERED: FLUORESCEIN NA 1 EA STRIP ONE (09:42)
[2024-02-09] MEDS: TETRACAINE 0.5% OPHTH SOLN 2 ML BOTTLE OD ONE (09:43)
[2024-02-09] MEDS: FLUORESCEIN NA 1 EA STRIP OD ONE (09:43)
[2024-02-09] MEDS: ERYTHROMYCIN 0.5% OPHTHALMIC OINTMENT 3.5 GM TUBE OD SCH (09:48)
== END 2024-02-09 10:02 | disposition home or self-care (01) ==
LOC: JERFT 08:49
DX: S05.02XA Injury of conjunctiva and corneal abrasion without foreign body, left eye, initial encounter (principal); X58.XXXA Exposure to other specified factors, initial encounter
CPT/HCPCS: 99283-25